=== PATIENT | male | born 1995 | race Caucasian/White ===

== ENCOUNTER 2021-09-04 19:38 | Emergency (ER) | payer OTHER ==
[~2021-09-04] VITALS: Ht 180.3 cm; Wt 97.0 kg
--- NOTE | 2021-09-04 19:50 | PHYS DOC ---
General Adult EDM: Chief Complaint: GENERALIZED BODY ACHES HPI: HPI: Patient is a 26 year old male who presents for COVID testing, as he was instructed to do so by his sergeant. (DARIO BRUNNER) Review of Systems: Review of Systems: ROS negative or noncontributory except as mentioned in HPI. (DARIO BRUNNER) Physical Exam: PE: Constitutional: Well developed, well nourished, no acute distress, non-toxic appearance. Neurologic: Alert and oriented x4, steady and symmetrical gait, no focal deficits noted. (DARIO BRUNNER) Heart Score: C/O Chest Pain: No (DARIO BRUNNER) Course & Med Decision Making: Course & Med Decision Making Pertinent Labs and Imaging studies reviewed. (See chart for details) Patient is a 26-year-old male who presents for COVID-19 testing after exposure as directed by his sergeant. (DARIO BRUNNER) Course & Med Decision Making Did not see or evaluate patient. Did not discuss patient with DIRECTOR OF INDUSTRIAL RELATIONS. Agree with DIRECTOR OF INDUSTRIAL RELATIONS's work-up and disposition per note. (MARIA DEL CARMEN TURPIN MD) Dragon Disclaimer: Dragon Disclaimer: This electronic medical record was generated, in whole or in part, using a voice recognition dictation system. (DARIO BRUNNER) Departure Departure: Impression: Primary Impression: Person under investigation for COVID-19 Disposition: 01 HOME / SELF CARE / HOMELESS Condition: STABLE Referrals: LEANDRO RANGEL DO, [facility] (PCP) Additional Instructions: Follow the following supportive treatment measures: - Cool mist humidifier with plain water at bedside while you sleep - Mucinex (guaifenesin) per box instructions - Alternate ibuprofen and acetaminophen every four hours for body aches/fever/headache You have been tested for or diagnosed with COVID-19 infection. It is an infection caused by a new type of coronavirus. COVID-19 will cause cold-like or mild flu symptoms in most. It can cause more severe symptoms like problems breathing in some. There is no treatment for COVID-19. The body will clear the infection over time. Self-care will help to ease discomfort. Steps to Take: - Rest as needed. - Choose healthy foods including fruits and vegetables. Drink water throughout the day. - Get plenty of sleep each night. - If you smoke, try to quit. It may ease breathing. - Avoid alcohol. - Keep Others Healthy - The virus can spread to others. Droplets are released every time you sneeze or cough. The droplets can get into the mouth, nose, or eyes of people near you and lead to infection. To lower the chances of spreading COVID-19 to others: Stay at home until your doctor has said it is safe to leave. If you tested positive this will mean staying isolated until both of the following are true: - At least 7 days have passed since the start of illness. - You are free of fever for at least 72 hours without the use of medicine. During this time: - Avoid public areas, events, or transportation. Do not return to work or s [employer] until your doctor has said it is safe to do so. - Call ahead if you need to go to a medical center. Let them know you may have COVID-19. It will help them guide you where to go. They may also ask you to wear a facemask when you come to the office. - If you call for emergency medical services, let them know you may have COVID- 19. While at home: - Try to avoid close contact with others. Stay about 6 feet away. - If possible, spend most of your time in a separate room from others. - Use a face mask if you will be in close contact with others such as sharing a room or vehicle. - Have someone wipe down common surfaces in the home. Use household snack steward every day on areas like doorknobs, counters, or sinks. - Cough or sneeze into a tissue. Throw the tissue away right after use. If a tissue is not available, cough or sneeze into your elbow. - Wash your hands often. Wash them after sneezing or coughing. Use soap and water and wash or at least 20 seconds. Alcohol based hand cleaner and preparer can be used if soap and water is not available. - Do not prepare food for others. Avoid sharing personal items like forks, spoons, or toothbrushes. - Avoid close contact with pets while you are sick. There is no evidence of the virus passing to pets. This is a safety step until more is known about this virus. - Isolation can be frustrating. Social interaction can help. Keep in touch with friends and family through phone and tech options. You can still interact with others in your home, just keep a safe distance of about 6 feet. Follow-up: - Your doctors office will check in with you to see if there are any changes in your health. - You may be asked to keep track of symptoms to share with them. They will also let you know when you are clear to be in public again. Contact your doctor if your recovery is not going as you expect. Get emergency care if you have problems such as: - Trouble breathing with oxygen saturation <90% - Nonstop chest pain or pressure - Changes in awareness, confusion, or problems waking - Lips or face have bluish color - Worsening of symptoms If you think you have an emergency, call for emergency medical services right away. As taken from [facility] DARIO BRUNNER Sep 04, 2021 19:49 MARIA DEL CARMEN TURPIN MD Sep 04, 2021 20:16
[2021-09-04 20:00] VITALS: BP 130/85
== END 2021-09-04 20:10 | disposition home or self-care (01) ==
LOC: ER 19:38
DX: U07.1 COVID-19 (principal)
CPT/HCPCS: 99283; C9803; U0003